=== PATIENT | female | born 1990 | race Caucasian/White ===

== ENCOUNTER → 2016-12-19 06:34 | Day surgery (SDC) | payer OTHER ==
[~2016-12-19 06:34] MED LIST: Buffered Lidocaine 1% SYRIN* 3 ML/SYR SYRINGE INTRADERM ONE; Bupivacaine 0.5% W/EPI SDV* 30 ML VIAL ONE; Dexamethasone IV* 4 MG/ML 1 ML (4 MG) ONE; Lidocaine 2% PF* 5 ML VIAL ONE; Metoclopramide IV* 5 MG/ML 2 ML VIAL IV PRN; Metoclopramide IV* 5 MG/ML 2 ML VIAL ONE; Midazolam* 1 MG/ML 2 ML VIAL (2 MG) ONE; Ondansetron INJ* 2 MG/ML VIAL ONE; Propofol* 10 MG/ML 20 ML BTL IV PUSH ONE; Scopolamine 1.5 mg* PATCH TRANSDERM PRN; Sodium Citrate/Citric Acid* 15 ML UDC ONE; ceFAZolin 2 GM PREMIX(*) 2 GM/50 ML BAG IVPB ONE; fentaNYL* 50 MCG/ML 2 ML VIAL (100 MCG VIAL) ONE
[2016-12-19 13:26] VITALS: BP 123/76
--- NOTE | 2016-12-20 14:52 | RAD ---
INDICATION: Right wrist pain, climbing injury COMPARISONS: November 25, 2016 TECHNIQUE: Fluoroscopy was provided for a surgical procedure. Total fluoroscopy time is: 3 seconds FINDINGS: Spot images are submitted of the right wrist IMPRESSION: FLUOROSCOPY WAS PROVIDED FOR A SURGICAL PROCEDURE CPT II Codes: 6045F
--- NOTE | 2016-12-20 16:11 | OP ---
DATE OF OPERATION: 12/19/16 - [facility] DATE OF : 88 SURGEON: Dereck Alvares MD RESEARCH NURSE: ROSA MARIA Ibarra ANESTHESIOLOGIST: Nat Sanderson MD ANESTHESIA: Axillary block plus general. PRE-OP DIAGNOSIS: Right wrist triangular fibrocartilage complex peripheral tear , dorsal and ulnar. POST-OP DIAGNOSIS: Right wrist triangular fibrocartilage complex peripheral tear, dorsal and ulnar. OPERATIVE PROCEDURE: 1. Diagnostic right wrist arthroscopy. 2. Arthroscopic debridement of right wrist peripheral, dorsal and ulnar, TFCC tear. 3. Open repair of right wrist TFCC tear. INDICATIONS: Christina is 26 years old. She presented to my office about 2 to 3 weeks ago after a rock climbing injury with acute onset ulnar-sided wrist pain and clicking and catching. I had ordered an MRI scan, which showed findings to me that showed a probable peripheral ulnar tear of the TFCC. We had talked about treatment options including giving this an injection and just see if it calms down versus diagnostic arthroscopy and repair of the TFCC tear if I found , I did indeed confirm my suspicion on the MRI. Ultimately, she is having quite a bit of catching and clicking and she was very interested in proceeding with surgical intervention. ESTIMATED BLOOD LOSS: 5 mL. COMPLICATIONS: None. FINDINGS: Peripheral, dorsal and ulnar TFCC tear with the TFC torn off the capsule. DESCRIPTION OF PROCEDURE: Christina was seen in the preoperative holding area, and the correct site, side, and procedure were identified. We came back to the operating room where the block was performed and then anesthesia was induced. The arm was prepped and draped in the usual fashion and formal time-out was performed. We began by placing the arm in the Acumed traction tower and traction was applied. The arm was exsanguinated with the Esmarch and then tourniquet inflated to 250 mmHg. I began by developing the 3-4 portal by using an 11 blade to incise the skin followed by the mosquito to enter the joint capsule and dilate the capsule and then placing the blunt trocar. I then placed a camera into the cannula and began the diagnostic arthroscopy around the radial side of the wrist. The radial side of the wrist looked absolutely pristine. I took some pictures and then came over to the ulnar side of the wrist. The camera passed easily over to the ulnar side of the wrist. There was a peripheral tear dorsally that was immediately visualized. I went ahead and created the 6R portal and then the 4-5 portal. I introduced the probe through the 6R portal and probed the tear. I then brought in the shaver and worked through both the 4-5 and 6R portals, I was able to debride the TFCC tear back to clean stable edges. The tear did not really flip back up and I felt like it was probably still attached deeply at the fovea based off the arthroscopic and MRI findings. I went ahead and at this point, contemplated using the TFCC FasT- Fix to repair the tear. However, I thought given the dorsal location of the tear and its location adjacent to the ECU subsheath, it would probably be difficult to safely pass the FasT-Fix device volar to the ECU and so I elected for an open repair. The membranous and visualized dorsal portions of the scapholunate ligament looked absolutely pristine. There was not any evidence of scapholunate ligament injury on the MRI and so I elected to not develop the midcarpal portals in order to not cause additional trauma to an otherwise healthy wrist in the midcarpal portal. At this point, I went ahead and let the arm out of the traction tower. I went ahead and extended my 4-5 portal proximally and then obliquely as I went distally. Full-thickness flaps were raised down to the fifth dorsal compartment. The distal aspect of the fifth dorsal compartment was opened and the EDM tendon was retracted radially. I then made an arthrotomy just distal to the TFCC. The dorsal capsule was peeled off the dorsal TFCC. I got to the level of the sixth dorsal compartment and released just a little bit of the sixth dorsal compartment tendon sheath to retract the ECU tendon ulnarly in order to fully be able to visualize the tear. Once I removed the ECU tendon, little more ulnar, I was able to visualize the tear. At this point, I took some 3-0 Ethibond suture. I went ahead and placed 2 mattress sutures through the TFCC tear. I then felt like I had a very nice repair, and so I went ahead and put a couple of stitches to close up the capsule in the dorsal aspect of the TFCC. I then put the arm back up in the Acumed traction tower and placed the scope through the 3-4 portal. I swung out ulnarly and the dorsal aspect of the tear was repaired quite nicely, but there was still little bit of a tear at the volar aspect of the tear. I decided this was a little too much and I was not satisfied with this, so I went ahead and took the arm back out of the traction tower. I released the stitches that I had put in the TFCC to the repair. I then went ahead and placed more accurately a couple of mattress sutures, which I tied off. At this point, I felt that the tear was very nicely repaired. I then went ahead and again repaired the dorsal capsule to the TFCC utilizing 3-0 Ethibond sutures. Once I had that all closed up, I went ahead and placed the arm back in the Acumed traction tower. I introduced the camera through the 3-4 portal. This time when I swung over, the tear was very nicely closed down and looked very nice on the arthroscopic images. I took a couple of pictures and I then went ahead and used some 3-0 Ethibond to close the distal aspect of the released retinaculum over the fifth dorsal compartment. I did not transpose the tendon. Any remaining loose edges were closed up and once I felt like I had a nice dorsal capsular repair and retinacular repair, I went ahead and irrigated out the wound again and I closed the skin with some 4- 0 nylon suture. 0.25% Marcaine was infiltrated along all the operative sites. The arm was let out of the traction tower. The wounds were dressed with Xeroform , 4x4s, sterile Webril, and then a sugar tong splint was applied. Tourniquet was deflated during splint placement. The hand pinked up immediately. She was then woken back up and taken to the recovery room in stable condition. [id number]/[facility] #: [id number] ZAINA
== END | disposition home or self-care (01) ==
LOC: OREAST 06:34
PROVIDERS: ATTEND Orthopaedic Surgery Hand Surgery
DX: S63.592A Other specified sprain of left wrist, initial encounter (principal); X50.0XXA Overexertion from strenuous movement or load, initial encounter; Y93.31 Activity, mountain climbing, rock climbing and wall climbing; Y92.89 Other specified places as the place of occurrence of the external cause
CPT/HCPCS: 76000; A9270-GY; J0690; J1100; J2250; J2405; J2704; J3010